=== PATIENT | female | born 1960 | race Caucasian/White ===

== ENCOUNTER 2022-04-08 17:59 | Emergency (ER) | payer MEDICAID, SELFPAY ==
[2022-04-08 19:08] VITALS: BP 141/78; PULSE 91; RESP 18; TEMP 36.6; O2SAT 98; BMI 19.3
--- NOTE | 2022-04-08 19:21 | EXP.UTC ---
Discharge Plan Disposition Patient Disposition: Home, Self-Care Condition: Good Prescriptions Prescriptions: New cephalexin 500 mg capsule 500 mg PO TID 7 Days Qty: 21 0RF Referrals Follow up/Referrals: Alin Cummings MD [Primary Care Provider] - See instructions Activity Restrictions/Add. Instructions Additional Instructions/Restrictions: Keep wound area clean and dry Apply topical cream as directed twice daily Follow up with wound Care Clinic call for appointment Take oral medication as prescribed Return if needed Straight to ER if any life threatening symptoms Clinical Impressions Clinical Impression: Burn of hand Qualifiers: Encounter type: initial encounter Burn of hand location: unspecified site Laterality: left Burn degree: unspecified degree Qualified Code(s): T23.002A - Burn of unspecified degree of left hand, unspecified site, initial encounter Dis[place] ED Provider: Maria T Churchill [facility] [place] General Stated complaint: AO 04/04at home burn l hand Mode of Arrival: Ambulatory Time Seen by Provider: 04/08/22 19:25 Description of Symptoms (Recalled from Triage Doc. by RN): pt comes in with a burn to left hand. on thursday pt had a jones of grease that was on stove, her dog was running around, she tripped over dog and jones of grease spilt on her hand. HEENT Symptoms (Recalled from RN notes): No Resp Symptoms (Recalled from RN notes): No Skin Symptoms (Recalled from RN notes): Yes MS Symptoms (Recalled from RN notes): No Functional Status (Recalled from RN notes): n/a History of Present Illness Provider Complaint: Patient states that on Thursday she was trying pour hot grease from jones into a grease bowl and her dogs started fighting and she turned and poured the hot grease on her left hand States that she has been keeping it clean and putting neosporin on it but it started looking like it was getting infected so she came in wanting some oral antiobiotics for the infection Related Data Previous Rx's Medication Instructions Recorded cephalexin 500 mg capsule 500 mg PO TID 7 days #21 caps 04/08/22 Allergies Allergy/AdvReac Type Severity Reaction Status Date / Time From Naproxen Sodium Allergy Severe S-SKIN Uncoded 06/02/17 14:33 ERUPTIONS Ibuprofen Allergy Severe S-SWELLS-OR Uncoded 06/02/17 14:33 AL/THROAT Worker's Comp Is this a Worker's Comp case?: No PFSH PFSH Social History Smoking Status: Unknown if ever smoked alcohol intake: never current occupational status: unemployed Travel in the last 8 weeks: None ROS Obtained: Yes All systems reviewed & no additional complaints except as documented and Yes Systems reviewed as appropriate & no additional complaints except as documented Constitutional Constitutional: Reports system reviewed and no additional complaints, except as documented and Reports as per HPI Eyes Eyes: Reports system reviewed and no additional complaints, except as documented and Reports as per HPI ENT Ears, Nose, Mouth, and Throat: Reports system reviewed and no additional complaints, except as documented and Reports as per HPI Integumentary/Breasts Skin/Breast: Reports other (burn to left hand on Thursday worried it may be infected) Physical Exam General General appearance: alert and in no apparent distress Respiratory Respiratory exam: Present normal lung sounds bilaterally; Absent respiratory distress Cardiovascular Cardiovascular exam: Present regular rate, normal rhythm and normal heart sounds Expanded Upper Extremity Exam Left: Hand L/R back image: 1. burn to hand since Thursday that appears red and inflammed Neurological Exam Neurological exam: Present alert, oriented X3 and normal gait Medical Decision Making Floyd Inquiry Pt receiving controlled substance: No Floyd was queried for this patient: No Vital Signs: 04/08/22 19:08 Temperature 97.8 F Temperature Source Oral Pulse Rate [Left Radial] 91 H Respiratory Rate 18 Blood
[2022-04-08 19:55] VITALS: BP 141/78; PULSE 91; RESP 18; TEMP 36.6
== END 2022-04-08 20:01 | disposition home or self-care (01) ==
PROVIDERS: Emergency Provider Nurse Practitioner; PCP Emergency Medicine
DX: T23.002A Burn of unspecified degree of left hand, unspecified site, initial encounter (principal)
CPT/HCPCS: 99212; G0463

== ENCOUNTER 2024-11-25 12:44 | Outpatient (CLI) | payer MEDICAID, SELFPAY ==
--- OUTSIDE RECORDS SUMMARY | 2024-11-25 12:47 | XMS_ITS | Clinical Summary ---
Author Organization [facility] Address [address] [place] [address] Phone Care Team Providers Care Shift Boss Name Role Phone Unavailable Primary Care Provider Unavailabl e Allergies Active Allergy Reactions Criticality Noted Date Comments Ibuprofen Hives High 03/18/2011 Surgical History Surgery Date Site/Laterality Comments TUBAL LIGATION Social History Tobacco Use Types Packs/Day Years Used Date Smoking Tobacco: Never Assessed Comments Unknown Sex and Gender Information Value Date Recorded Sex Assigned at Not on file Legal Sex Female 8:14 PM EDT Gender Identity Not on file Sexual Orientation Not on file Obstetrics History Plan of Treatment Health Maintenance Due Date Last Done Comments Annual Wellness Exam 1964 Hepatitis C Screening 1979 DTaP/TDaP/Td (1 - Tdap) 1980 Cologuard 2006 Colon Cancer Screening 2006 Colonoscopy 2006 FIT 2006 Sigmoidoscopy 2006 Virtual Colonography 2006 Pneumococcal Vaccine 50+ (1 of 1 - PCV) 2011 Zoster (1 of 2) 2011 COVID-19 Vaccine (2023-2 5 season) 2024 Influenza Vaccine (Season Ended) 2025 Hepatitis B Vaccine Aged Out No longe r eligible based on patient's age to complete this topic Meningococcal B Vaccine Aged Out No l onger eligible based on patient's age to complete this topic Goals Goal Patient Goal Type Associated Problems Recent Progress Patient-Stated? Author Maintain a healthy diet, exercise regularly and maintain an ideal body weight General No Fiona Bennett, JON
--- OUTSIDE RECORDS SUMMARY | 2024-11-25 12:47 | XMS_ITS | Data Portability ---
Author Organization Formerly [facility], [facility]–1983 Address [address] [place] [address] Assessment No assessment recorded. Plan of Treatment Reminders Order Date Submit Date Provider Last Modified By Organization Details Last Modified Time Details Appointments None recorded. Lab None recorded. Referral None recorded. Procedures None recorded. Surgeries None recorded. Imaging MRI, lumbar spine, w/o contrast 2024 [id number] [facility] [address] [place], [address], 5 14:26:32 Medication Orders duloxetine 30 mg capsule,del ayed release 2024 025 [facility] [id number], [address] [place], [address], 5 14:11:56 duloxetine 60 mg capsule,del ayed release 2024 025 [facility] [id number], [address] [place] [address] [place], [address], 5 14:11:56 Patient TargetsNo targets recorded. Patient InstructionsNo instructions recorded. Reason for Referral None Reported. Problems Name Problem SNOMED Code Status Onset Date Resolution Date Notes Provider Name and Address Organization Details Recorded Time Chronic low back pain 097122277 Active 025 Clifford Carver DO [address], [place], [address], [facility] 5 14:09:16 Depressive disorder 68868211 Active 025 Clifford Carver DO [address], [place], [address], [place] - [facility] 5 14:10:46 Problem Notes None recorded. Medical Equipment None Reported. Allergies Allergen ID Allergen Name Allergen Category Reaction Reaction Severity Criticality Documentation Date Start Date Code Code System Note Provider Name and Address Organization Details Recorded Time 63159 Advil medicatio n Not available Not available Not available 03/21/20162010 16289 0 RxNorm Not Available Formerly [facility] 6 09:55:11 99764 Aleve medicatio n Not available Not available Not available 03/21/20162010 43532 1 RxNorm Not Available [facility] 6 10:03:29 Medications Name Sig Start Date Stop Date Status Note LastModified by Organization Details LastModified Time cyclobenz aprine 10 mg tablet take 1 tablet (10 mg) by oral route 3 times per day for 14 days 04/11 completed cycloben zaprine 10 mg oral tablet;R ecorded Status: Recorded on: 09/12/19 11 11:48AM; Disconti nued Status: Disconti nued on: 04/11/20 11 1:44PM;U ser: keefk;Es t. Completi on: 09/26/19 11;Print ed: 09/12/19 11 Not Available Not Available Not Available Augmentin 875 mg-125 mg tablet take 1 tablet by oral route every 12 hours for 10 days 08/27 completed Augmenti n 875-125 mg oral tablet;R ecorded Status: Recorded on: 04/11/20 11 1:58PM;D iscontin ued Status: Disconti nued on: 08/28/19 13 1:53PM;U ser: meyerst; Est. Completi on: 04/21/20 11;Indic ation: Bronchit is, Acute - (466.0) Not Available Not Available Not Available clindamyc in HCl 300 mg capsule take 1 capsule (300 mg) by oral route 2 times per day for 7 days 12/06 completed clindamy irina HCl 300 mg oral capsule; Prescrib e Status: Prescrib ed on: 07/05/19 14 12:42PM; Disconti nued Status: Disconti nued on: 12/07/19 14 2:09PM;U ser: andrusa; Est. Completi on: 07/12/19 14;Pharm acNoraf ied: 07/05/19 14 12:42PM Not Available Not Available Not Available Lortab 7.5 mg-500 mg tablet one tablet tid 09/04 completed Lortab 7.5-500 mg oral tablet;R ecorded Status: Recorded on: 06/29/19 14 3:22PM;D iscontin ued Status: Disconti nued on: 09/05/19 16 11:07AM; User: andrusa Not Available Not Available Not Available meloxicam 15 mg tablet TAKE 1 TABLET BY ORAL ROUTE DAILY FOR 30 DAYS WITH FOOD 2024 active Not Available Not Available Not Avai lable phenazopy ridine 200 mg tablet take 1 tablet (200 mg) by oral route 3 times per day after meals for 4 days 09/04 completed phenazop yridine 200 mg oral tablet;P rescribe Status: Prescrib ed on: 01/23/20 15 1:49PM;D iscontin ued Status: Disconti nued on: 09/05/19 16 11:07AM; User: ericn;Es t. Completi on: 01/27/20 15;Indic ation: Urinary Tract Irritati on - (16.7889 00);Kiesha Diop fied: 01/23/20 15 1:49PM Not Available Not Available Not Available Elmiron 100 mg capsule take 1 capsule (100 mg) by oral route 3 times per day with water, 1 hour before or 2 hours after a meal 01/23 completed Elmiron 100 mg oral capsule; Prescrib e Status: Prescrib ed on: 01/23/20 15 1:49PM;D iscontin ued Status: Disconti nued on: 01/24/20 15 3:15PM;U ser: grayn;Es t. Completi on: 02/22/20 15;Indic ation: Intersti tial Cystitis - (10.5951 00);Kiesha Diop fied: 01/23/20 15 1:49PM Not Available Not Available Not Available Diflucan 150 mg tablet take 1 tablet (150 mg) by oral route once for 1 day 08/27 completed Diflucan 150 mg oral tablet;R ecorded Status: Recorded on: 04/11/20 11 1:54PM;D iscontin ued Status: Disconti nued on: 08/28/19 13 1:53PM;U ser: vesth;Es t. Completi on: 04/12/20 11 Not Available Not Available Not Available promethaz ine 6.25 mg-codein e 10 mg/5 mL syrup take 5 millilit ers by oral route every 6 hours as needed, not to exceed 30 mL in 24 hours 08/27 completed prometha zine-cod eine 6.25-10 mg/5 mL oral syrup;Re corded Status: Recorded on: 04/11/20 11 1:58PM;D iscontin ued Status: Disconti nued on: 08/28/19 13 1:53PM;U ser: meyerst; Indicati on: Bronchit is, Acute - (466.0) Not Available Not Available Not Available hydrocodo ne 10 mg-acetam inophen 325 mg tablet TAKE 1 TABLET BY MOUTH 4 TIMES A DAY FOR 14 DAYS M47.816 11/17 completed Not Available Not Available Not Available Zoloft 50 mg tablet take 1 tablet (50 mg) by oral route once daily 12/06 completed Zoloft 50 mg oral tablet;R ecorded Status: Recorded on: 08/28/19 13 2:22PM;D iscontin ued Status: Disconti nued on: 12/07/19 14 2:38PM;U ser: meyerst; Indicati on: Anxiety Disorder , Generali zed - (300.02) ;Printed : 08/28/19 13 Not Available Not Available Not Available oxycodone -acetamin ophen 10 mg-325 mg tablet TAKE 1 TABLET BY ORAL ROUTE 3 TIMES A DAY FOR 30 DAYS M47.816 active Not Available Not Available No t Available amitripty line 10 mg tablet take 1 tablet (10 mg) by oral route qd 11/17 completed amitript yline 10 mg oral tablet;P rescribe Status: Prescrib ed on: 01/24/20 15 3:40PM;U ser: [email or web address]; Pharmacy Verified : 01/24/20 15 3:40PM Not Available Not Available Not Available Flagyl 500 mg tablet take 2 tablets (1 gram) by oral route 2 times per day for 7 days 09/04 completed Flagyl 500 mg oral tablet;P rescribe Status: Prescrib ed on: 01/30/20 15 5:39PM;D iscontin ued Status: Disconti nued on: 09/05/19 16 11:07AM; User: [email or web address]; Est. Completi on: 02/06/20 15;Pharm acyVjenniferf ied: 01/30/20 15 5:39PM Not Available Not Available Not Available Prozac 20 mg capsule take 1 capsule (20 mg) by oral route once daily in the morning for 2 weeks then 2 capsules a day 01/22 completed Prozac 20 mg oral capsule; Prescrib e Status: Prescrib ed on: 03/09/20 14 1:35PM;D iscontin ued Status: Disconti nued on: 01/23/20 15 1:49PM;U ser: ericn;Connie t. Completi on: 05/08/20 14;Indic ation: Major Depressi ve Disorder - (05.2962 00);Jasmeetr Chikis fied: 03/09/20 14 1:35PM Not Available Not Available Not Available Cipro 500 mg tablet take 1 tablet (500 mg) by oral route every 12 hours for 7 days 12/06 completed Cipro 500 mg oral tablet;P rescribe Status: Prescrib ed on: 07/05/19 14 12:42PM; Disconti nued Status: Disconti nued on: 12/07/19 14 2:09PM;U ser: rhianna; Est. Completi on: 07/12/19 14;Pharm acyVerif ied: 07/05/19 14 12:42PM Not Available Not Available Not Available ranitidin e 150 mg tablet TAKE 1 TABLET BY MOUTH TWICE A DAY 11/17 completed ranitidi ne HCl 150 mg oral tablet;P rescribe Status: Prescrib ed on: 01/15/20 16 8:45AM;U ser: kimberli Not Available Not Available Not Available buspirone 10 mg tablet one half to one tab three times daily as needed 06/29 completed buspiron e 10 mg oral tablet;R ecorded Status: Recorded on: 08/28/19 13 2:22PM;D iscontin ued Status: Disconti nued on: 06/29/19 14 3:22PM;U ser: sara; Indicati on: Generali zed Anxiety Disorder - ();Prin braydon: 08/28/19 13 Not Available Not Available Not Available Advair Diskus 250 mcg-50 mcg/dose powder for inhalatio n inhale 1 puff by inhalati on route 2 times per day in the morning and evening approxim ately 12 hours apart 04/08 completed Advair Diskus 250-50 mcg/dose inhalati on blister with device;P rescribe Status: Prescrib ed on: 03/09/20 14 1:34PM;U ser: grayn;Es t. Completi on: 04/08/20 14;Indic ation: Preventi on of Bronchos pasm with Chronic Bronchit is - (4912 );Kiesha Diop fied: 03/09/20 14 1:34PM Not Available Not Available Not Available gabapenti n 300 mg capsule TAKE 1 CAPSULE BY ORAL ROUTE 3 TIMES A DAY FOR 30 DAYS active Not Available Not Available No t Available hydrocodo ne 5 mg-acetam inophen 500 mg tablet take 1 tablet by oral route every 6 hours as needed for pain 06/29 completed hydrocod one-acet aminophe n 5-500 mg oral tablet;R ecorded Status: Recorded on: 09/12/19 11 11:23AM; Disconti nued Status: Disconti nued on: 06/29/19 14 3:22PM;U ser: suleman Not Available Not Available Not Available albuterol sulfate HFA 90 mcg/actua tion aerosol inhaler inhale 1 - 2 puffs by inhalati on route every 6 hours as needed 04/08 completed albutero l sulfate 90 mcg/actu ation inhalati on HFA aerosol inhaler; Prescrib e Status: Prescrib ed on: 03/09/20 14 1:34PM;U ser: grayn;Es t. Completi on: 04/08/20 14;Indic ation: Bronchos pasm Preventi on - (08.5191 01);Phar Chikis fied: 03/09/20 14 1:34PM Not Available Not Available Not Available Premarin 0.625 mg/gram vaginal cream apply 0.5 gram by vaginal route q HS x 1 week, then twice weekly 12/06 completed Premarin 0.625 mg/gram vaginal cream;Pr escribe Status: Prescrib ed on: 06/29/19 14 4:40PM;D iscontin ued Status: Disconti nued on: 12/07/19 14 2:09PM;U ser: youngk;E st. Completi on: 09/28/19 14;Pharm acyVerif ied: 06/29/19 14 4:40PM Not Available Not Available Not Available Spiriva with HandiHale r 18 mcg and inhalatio n capsules inhale 1 capsule (18 mcg) by inhalati on route once daily 04/08 completed Spiriva with HandiHal er 18 mcg inhalati on capsule, w/inhala tion device;P rescribe Status: Prescrib ed on: 03/09/20 14 1:34PM;U ser: grayn;Es t. Completi on: 04/08/20 14;Indic ation: Bronchos pasm Preventi on with COPD - (08.4960 );Phar Chikis fied: 03/09/20 14 1:34PM Not Available Not Available Not Available duloxetin e 30 mg capsule,d elayed release Take 1 capsule every day by oral route for 30 days. 2024 active Not Available Not Available Not Avai lable duloxetin e 60 mg capsule,d elayed release Take 1 capsule every day by oral route for 90 days. 2024 active Not Available Not Available Not Avai lable Chantix Starting Month Harley 0.5 mg (11)-1 mg (42) tablets in dose pack take as directed 02/21 completed Chantix Starting Month Harley 0.5 mg (11)- 1 mg (42) oral tablets, dose pack;Pre scribe Status: Prescrib ed on: 01/23/20 15 1:49PM;U ser: grayn;Es tIrving Completi on: 02/22/20 15;Pharm acyVerif ied: 01/23/20 1:49PM Not Available Not Available Not Available oxycodone 10 mg tablet take 1 tablet by oral route 3 times a day 11/17 completed oxycodon e 10 mg oral tablet;R ecorded Status: Recorded on: 09/05/19 16 11:07AM; User: dru Not Available Not Available Not Available Vitals Date Recorded Body weight Body temperature Heart rate Oxygen saturation Oxygen saturation in Arterial blood by Pulse oximetry Respiratory rate Body mass index (BMI) Body height Systolic blood pressure Diastolic blood pressure Provider Name and Address Organization Details Last Updated DateTime 5 33776.8 2 g 97.5 [degF] 86 /min 96 % 96 % 18 /min 18.6 kg/m2 167.64 cm 110 mm[Hg] 72 mm[Hg] Alba Will [place] - [facility] 13:50:48 Social History Question Answer Notes LastModified by Organizat ion Details LastModified Time Tobacco Smoking Status Current Every Day Smoker Alba Will null, [place] - [facility] 11/17/2024 13:55:19 What Is Your Level Of Caffeine Consumption? Moderate [email or web address] Information not available 11/17/2024 What Was The Date Of Your Most Recent Tobacco Screening? 11/17/2024 [email or web address] Information not available 11/17/2024 What Is Your Current Pack Years? 30ormorepacky ears [email or web address] Information not available 11/17/2024 What Is Your Relationship Status? [email or web address] Information not available 11/17/2024 At What Age Did You Start Smoking Tobacco? 46 [email or web address] Information not available 11/17/2024 How Much Tobacco Do You Smoke? 1 PPD [email or web address] Information not available 11/17/2024 Has Tobacco Cessation Counseling Been Provided? Yes [email or web address] Information not available 11/17/2024 On What Date Was Tobacco Cessation Counseling Provided? 11/17/2024 [email or web address] Information not available 11/17/2024 How Many Years Have You Smoked Tobacco? 18 Information not available 11/17/2024 Sex: Female Functional Status Question Answer Note LastModified by Organizat ion Details LastModified Time Do you use any illicit or recreational drugs? No [email or web address] Information not available 11/17/2024 Do you or have you ever used any other forms of tobacco or nicotine? Yes [email or web address] Information not available 11/17/2024 What is your level of alcohol consumption? None [email or web address] Information not available 11/17/2024 Do you or have you ever used smokeless tobacco? Never used smokeless tobacco [email or web address] Information not available 11/17/2024 Do you or have you ever used e-cigarettes or vape? Current user of electronic cigarettes [email or web address] Information not available 11/17/2024 Mental Status None recorded. Family History Nothing Reported. Medical History No medical history recorded. Gynecological History Statement/Question Response Menses Monthly N Obstetrics History GPAL:G 4 P 4 0 0 4 Type Value Full Term 4 Living 4 Total 4 Past Encounters Encounter ID Performer Location Encounter Start Date Encounter Closed Date Diagnosis/Indication Diagnosis SNOMED-CT Code Diagnosis ICD10 Code Diagnosis Note [id number] Clifford Carver DO [facility] [address] [place] [address] 11/17/2024 13:36:54 11/17/2024 14:08:32 Chronic low back pain 180683458 M54.50 G89.29 Chronic low back pain. Patient will continue to follow with pain management as scheduled. Will order MRI of the lumbar spine without contrast for further evaluation . Also recommend initiation of duloxetine therapy. The patient will take 30 mg for 4 weeks then titrate up to 60 mg. Pending MRI results, patient will be referred to a different pain medicine provider per patient request. Depressive disorder 1059 9000 F32.A Depression . [facility] ed. Patient will be started on duloxetine and titrated from 30 mg to 60 mg daily. Blackbox warning and when to discontinu e the medication reviewed with patient in detail. Patient will follow-up in 4 to 6 weeks to see how she is doing on the medication . Health Concerns Section Related Observation LastModified by Organization Detai ls LastModified Time None Recorded Concern Status LastModified by Organization Details LastModified Time None Recorded Advance Directives Directive None Recorded Payers Insurance Date Sequence Insurance Name Policy Number Policy Flores Covered Member ID Flores Member ID Guarantor Name 11/17/2024 1 [employer] [place] (MEDICAID REPLACEMENT - HMO) [id number] Carol Toledo [id number] Carolbibi Toledo 11/21/2024 [place] [facility] WRAP BILLING (MEDICAID) [id number] Carol Teegarden [id number] Carol Maria Aden Notes Date Note Type Note Provider Name and Address Organization Details Recorded Time 11/17/2024 text/html 64-year-old colleen bangura seen in the office today as a new patient to discuss her low back and her depression.Patient states that she has had ongoing problems with her low back since 1994. 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 Patient reported to the hospital at that point and states that she was referred to a pain doctor at that point and had an MRI. Patient states that for the last 13 years she has been with a pain medicine doctor Dr. Mcdonough at [place]. Patient is upset that the pain doc will not do injections into her back and states that she is having ongoing problems with her pain. Patient continues on gabapentin, oxycodone, and meloxicam. Patient is requesting an MRI of her lower back and referral to a different pain medicine doctor for consideration of ongoing treatment.Patient also describes losing a lot of family members and feeling depressed. Patient states a long time ago she was on Zoloft and it did not help much but states that she has had benefit from Valium and Xanax for treatment of her depression. Patient is hopeful to start medication to see if that helps with her depression. Patient denies any thoughts of hurting herself or anybody else. Clifford Carver DO [address], [place], [address], [place] - [facility] 11/17/2024 14:17:09 OBGyn Episode No OBEpisode recorded.
--- OUTSIDE RECORDS SUMMARY | 2024-11-25 12:47 | XMS_ITS | Continuity of Care Document ---
[facility] Organization [facility] Address [address] [place] [address] Assessment No assessment recorded. Plan of Treatment Reminders Order Date Submit Date Provider Last Modified By Organization Details Last Modified Time Details Appointments None recorded. Lab None recorded. Referral None recorded. Procedures None recorded. Surgeries None recorded. Imaging MRI, lumbar spine, w/o contrast 2024 025 [place] [id number] [facility] [address] [place], [address], 5 14:26:32 Medication Orders duloxetine 30 mg capsule,del ayed release 2024 025 [facility] [id number], [address] [place], [address], 5 14:11:56 duloxetine 60 mg capsule,del ayed release 2024 025 [facility] [id number], [address] [place] [address] [place], [address], 5 14:11:56 Patient TargetsNo targets recorded. Patient InstructionsNo instructions recorded. Reason for Referral None Reported. Problems Name Problem SNOMED Code Status Onset Date Resolution Date Notes Provider Name and Address Organization Details Recorded Time Chronic low back pain 844929631 Active 025 Clifford Carver DO [address], [place], [address], [facility] 5 14:09:16 Depressive disorder 97836860 Active 025 Clifford Carver DO [address], [place], [address], [place] - [facility] 5 14:10:46 Problem Notes None recorded. Medical Equipment None Reported. Allergies Allergen ID Allergen Name Allergen Category Reaction Reaction Severity Criticality Documentation Date Start Date Code Code System Note Provider Name and Address Organization Details Recorded Time 33085 Advil medicatio n Not available Not available Not available 03/21/20162010 60948 0 RxNorm Not Available [facility] 6 09:55:11 02771 Aleve medicatio n Not available Not available Not available 03/21/20162010 22352 1 RxNorm Not Available [facility] 6 10:03:29 Medications Name Sig Start Date [...] on: 12/07/19 14 2:09PM;U ser: andrusa; Est. Cuongi on: 07/12/19 14;Pharm Geoff ied: 07/05/19 14 12:42PM Not Available Not [...] 15;Indic ation: Intersti tial Cystitis - (10.5951 00);Jasmeetr macyVeri fied: 01/23/20 15 1:49PM Not Available Not [...] User: [email or web address]; Est. Completi on: 02/06/20 15;Pharm acyVerif ied: 01/30/20 15 5:39PM Not Available Not Available Not Available Prozac 20 mg capsule take 1 capsule (20 mg) by oral route once daily in the morning for 2 weeks then 2 capsules a day 01/22 completed Prozac 20 mg oral capsule; Prescrib e Status: Prescrib ed on: 03/09/20 14 1:35PM;D iscontin ued Status: Disconti nued on: 01/23/20 15 1:49PM;U ser: grayn;Connie tIrving Completi on: 05/08/20 14;Indic ation: Major Depressi ve Disorder - (05.2962 00);Phar Chikis fied: 03/09/20 14 1:35PM Not Available [...] Bronchos pasm with Chronic Bronchit is - (4905 20);Kiesha Diop fied: 03/09/20 14 1:34PM Not Available [...] 14;Indic ation: Bronchos pasm Preventi on - (085191 );Phar Chikis fied: 03/09/20 14 1:34PM Not [...] Bronchos pasm Preventi on with COPD - (4960 );Phar Chikis fied: 03/09/20 14 1:34PM Not [...] ed on: 01/23/20 15 1:49PM;U ser: grayn;Es t. Completi on: 02/22/20 15;Pharm acyVgee ied: 01/23/20 15 1:49PM Not Available Not Available [...] Address Organization Details Last Updated DateTime 5 54783.8 2 g 97.5 [degF] 86 /min 96 % 96 % 18 /min 18.6 kg/m2 167.64 cm 110 mm[Hg] 72 mm[Hg] Alba Will [place] - [facility] 13:50:48 Social History Question Answer Notes LastModified by Organizat ion Details LastModified Time Tobacco Smoking Status Current Every Day Smoker Alba Will [facility], [place] - [facility] 11/17/2024 13:55:19 What Is Your Level Of Caffeine Consumption? Moderate [email or web address] Information not available 11/17/2024 What Was The Date Of Your Most Recent Tobacco Screening? 11/17/2024 Information not available 11/17/2024 What Is Your Current Pack Years? [email or web address] Information not available 11/17/2024 What Is Your Relationship Status? [email or web address] Information not available 11/17/2024 At What Age Did You Start Smoking Tobacco? 46 [email or web address] Information not available 11/17/2024 How Much Tobacco Do You Smoke? 1 PPD Information not available 11/17/2024 Has Tobacco Cessation Counseling Been Provided? Yes [email or web address] Information not available 11/17/2024 On What Date Was Tobacco Cessation Counseling Provided? 11/17/2024 [email or web address] Information not available 11/17/2024 How Many Years Have You Smoked Tobacco? 18 [email or web address] Information not available 11/17/2024 Sex: Female Functional Status Question Answer Note LastModified by Organizat ion Details LastModified Time Do you use any illicit or recreational drugs? No [email or web address] Information not available 11/17/2024 Do you or have you ever used any other forms of tobacco or nicotine? Yes [email or web address] Information not available 11/17/2024 What is your level of alcohol consumption? None [email or web address] Information not available 11/17/2024 Do you or have you ever used smokeless tobacco? Never used smokeless tobacco [email or web address] Information not available 11/17/2024 Do you or have you ever used e-cigarettes or vape? Current user of electronic cigarettes [email or web address] Information not available 11/17/2024 Mental Status None [...] SNOMED-CT Code Diagnosis ICD10 Code Diagnosis Note [id number] Clifford Carver DO [facility] [address] [place] [address] 11/17/2024 13:36:54 11/17/2024 14:08:32 Chronic low back pain 257933429 M54.50 G89.29 Chronic low back pain. Patient [...] medicine provider per patient request. Depressive disorder 3300 9009 F32.A Depression . [facility] ed. Patient will be started on [...] by Organization Details LastModified Time None Recorded Payers Encounter Date Sequence Insurance Name Policy Number Policy Flores Covered Member ID Flores Member ID Guarantor Name 11/17/2024 1 [facility] (MEDICAID REPLACEMENT - HMO) [id number] Carol Toledo [id number] Carol Toledo Notes Date Note Type Note Provider Name [...] a pain medicine doctor Dr. Mcdonough at [facility]. Patient is upset that the pain doc [...] of hurting herself or anybody else. Clifford Carver, [address], [place], [address], [place] - [facility] 11/17/2024 14:17:09 OBGyn Episode No OBEpisode recorded.
--- NOTE | 2024-11-25 12:48 | MR_ITS ---
FINAL REPORT CLINICAL HISTORY: LBP pain x years no recent injury COMPARISON: None FINDINGS: Multiplanar MR imaging of the lumbar spine was performed without contrast. On the sagittal T2-weighted images, there is abnormal decreased signal throughout the lumbar discs, with relative sparing of the L5-S1 disc. Endplate reactive signal is noted at the L4-5 level. The vertebrae are of normal height. The vertebral alignment is normal. L1-2: There is no significant canal stenosis or neural foraminal narrowing. L2-3: There is no significant canal stenosis or neural foraminal narrowing. L3-4: A moderate annular bulge is present with moderate bilateral neural foraminal narrowing, greater on the right than on the left. L4-5: A moderate annular bulge is present with mild right and moderate left neural foraminal narrowing. L5-S1: There is no significant canal stenosis or neural foraminal narrowing. IMPRESSION: Mild to moderate degenerative changes present at the L3-4 and L4-5 levels, without acute osseous abnormality. Reviewed, Interpreted and Dictated by Jarek Vasquez MD Transcribed by Ermelinda Jack Authenticated and [facility]
== END 2024-11-25 23:59 | disposition home or self-care (01) ==
LOC: RAD 12:45
PROVIDERS: PCP Emergency Medicine; Visit Provider Family Medicine
DX: M47.816 Spondylosis without myelopathy or radiculopathy, lumbar region (principal)
CPT/HCPCS: 72148